=== PATIENT | male | born 1955 | race American Indian/Alaskan Native ===

== ENCOUNTER 2017-06-06 06:22 | Day surgery (SDC) | payer OTHER ==
--- NOTE | 2017-06-06 07:26 | Anesthesia Day of Surgery ---
Anesthesia Day of Surgery - Day of Surgery Patient Examined: Yes Patient H&P Reviewed: Yes Patient is NPO: Yes
--- NOTE | 2017-06-06 07:26 | Anesthesia Consultation ---
<SUKHI RAND - Last Filed: 06/06/17 07:26> Anesthesia Consult and Med Hx Date of service: 06/06/17 - Airway Anesthetic Teeth Evaluation: Good ROM Head & Neck: Adequate Mental/Hyoid Distance: Adequate Mallampati Class: Class II Intubation Access Assessment: Probably Good - Pulmonary Exam CTA: Yes - Cardiac Exam Cardiac Exam: RRR - Pre-Operative Health Status ASA Pre-Surgery Classification: ASA2 Proposed Anesthetic Plan: MAC - Cardiovascular System Hx Hypertension: Yes - Endocrine Hx Non-Insulin Dependent Diabetes: Yes <STEPHON MURCIA - Last Filed: 06/06/17 07:49> Anesthesia Consult and Med Hx - Pre-Operative Health Status ASA Pre-Surgery Classification: ASA3
[2017-06-06] MEDS: NACL 0.9% 1000 ML 1,000 ML IV SCH ×2 (07:32→08:41)
[2017-06-06] MEDS ORDERED: DIPRIVAN 10 MG/ML IV ONE ×2 (08:35)
--- NOTE | 2017-06-06 09:17 | Short Stay Summary ---
Short Stay Documentation - Allergies and Medications Current Medications: Allergies No Known Allergies Allergy (Verified 04/17/16 07:04) Home Medications Medication Instructions Recorded Confirmed Last Taken Type Januvia 50 mg PO DAILY 04/17/16 06/05/17 06/05/17 History Lisinopril 20 mg PO DAILY 04/17/16 06/05/17 06/05/17 History Magnesium 500 mg PO BID 04/17/16 06/05/17 04/16/16 History Pioglitazone HCl 15 mg PO DAILY 04/17/16 06/05/17 06/05/17 History Pravastatin 10 mg PO DAILY 04/17/16 06/05/17 06/05/17 History amLODIPine 10 mg PO DAILY 04/17/16 06/05/17 06/05/17 History glipiZIDE 10 mg PO TID 04/17/16 06/05/17 06/05/17 History Active Medications Sodium Chloride (Nacl 0.9% 1000 Ml) 1,000 mls @ 50 mls/hr IV DIRECT SHELDON Last Admin: 06/06/17 08:41 Dose: 50 mls/hr - Brief post op/procedure progress note Date of procedure: 06/06/17 Pre-op diagnosis: Colon cancer screening Post-op diagnosis: same (1. Diverticulosis coli 2. Internal hemorrhoids 3. Anal papillae) Procedure: Colonoscopy Anesthesia: MAC Findings: as above Surgeon: TRACI RODRIGUEZ Estimated blood loss: none Pathology: none Condition: stable - Disposition Condition at discharge: Stable Disposition: DC-01 TO HOME OR SELFCARE Short Stay Discharge Plan Activity: no restrictions Weight Bearing Status: Full Weight Bearing Diet: regular Follow up with: FAISAL ARANA MD [Primary Care Provider] - 7 Days
--- NOTE | 2017-06-06 09:20 | Post Anesthesia Evaluation ---
- Post Anesthesia Evaluation Patient Participated: Yes Airway Patent: Yes Stable Respiratory Function: Yes Temp > 96.8F: Yes Pain Manageable: Yes Adequeate Hydration: Yes Anesthesia Complications: No Block Receding Appropriately: Not Applicable
[2017-06-06 09:28] VITALS: BP 123/78
[2017-06-06] MEDS ORDERED: WATER FOR IRRIG STERILE IR ONE (09:54)
== END 2017-06-06 06:23 | disposition home or self-care (01) ==
LOC: GIO 06:22
PROVIDERS: ATTEND Internal Medicine Gastroenterology
DX: Z09 Encounter for follow-up examination after completed treatment for conditions other than malignant neoplasm (principal); K64.0 First degree hemorrhoids; K62.89 Other specified diseases of anus and rectum; K57.30 Diverticulosis of large intestine without perforation or abscess without bleeding; I10 Essential (primary) hypertension; E78.00 Pure hypercholesterolemia, unspecified; E11.40 Type 2 diabetes mellitus with diabetic neuropathy, unspecified; Z79.899 Other long term (current) drug therapy; Z79.84 Long term (current) use of oral hypoglycemic drugs; Z86.010 Personal history of colon polyps; Z98.890 Other specified postprocedural states; Z80.1 Family history of malignant neoplasm of trachea, bronchus and lung; Z83.3 Family history of diabetes mellitus
CPT/HCPCS: 45378; J2704